=== PATIENT | male | born 1950 | race Caucasian/White ===

== ENCOUNTER 2021-11-27 17:40 | Inpatient (IN) | payer MEDICARE, BC ==
[2021-11-27] MEDS ORDERED: ACETAMINOPHEN TAB 500 MG TAB PO STA (18:27)
[2021-11-27] MEDS ORDERED: ALBUTEROL HFA INHALER INHALATION STA (18:27)
[2021-11-27] MEDS ORDERED: ALBUTEROL HFA INHALER INHALATION PRN (18:27)
[2021-11-27] MEDS ORDERED: ONDANSETRON 4 MG/2 ML VIAL IVP STA (18:28)
[2021-11-27] MEDS ORDERED: FAMOTIDINE 20 MG/2 ML VIAL IV STA (18:28)
[2021-11-27] MEDS ORDERED: SODIUM CHLORIDE 0.9% 1,000 ML IV STA ×2 (18:28)
--- NOTE | 2021-11-27 18:30 | ED ---
General Adult HPI - General Chief complaint: Shortness of Breath Stated complaint: covid+, wants infusion Time Seen by Provider: 11/27/21 18:13 Source: patient, RN notes reviewed Mode of arrival: ambulatory Limitations: no limitations - History of Present Illness Initial comments: Patient is a pleasant 8 he 11-year-old male presenting to the emergency de partment with concern for COVID-19 infection. Onset of symptoms was a days ago. Patient did test positive. Patient has had significant fatigue. Patient has had cough with some shortness of breath. Patient has loss of taste and smell. Decreased appetite. Patient has had vomiting a couple times per day. Patient has had diarrhea a few times per day. No abdominal pain. Patient has had chills and myalgias. - Related Data Allergies Allergy/AdvReac Type Severity Reaction Status Date / Time No Known Allergies Allergy Verified 11/27/21 18:10 Review of Systems ROS Statement: Those systems with pertinent positive or pertinent negative responses have been documented in the HPI. ROS Other: All systems not noted in ROS Statement are negative. Constitutional: Reports: fever, chills Eyes: Denies: eye pain ENT: Denies: ear pain Respiratory: Reports: as per HPI, cough, dyspnea Cardiovascular: Denies: chest pain Endocrine: Reports: fatigue Gastrointestinal: Reports: nausea, vomiting, diarrhea. Denies: abdominal pain Genitourinary: Denies: dysuria Musculoskeletal: Denies: back pain Skin: Denies: rash Neurological: Denies: weakness Past Medical History Past Medical History: Hyperlipidemia History of Any Multi-Drug Resistant Organisms: None Reported Past Surgical History: No Surgical Hx Reported Past Psychological History: No Psychological Hx Reported Smoking Status: Former smoker Past Alcohol Use History: None Reported Past Drug Use History: None Reported General Exam Limitations: no limitations General appearance: alert, in no apparent distress Head exam: Present: normocephalic Eye exam: Present: normal appearance Neck exam: Present: normal inspection Respiratory exam: Present: normal lung sounds bilaterally Cardiovascular Exam: Present: regular rate, normal rhythm GI/Abdominal exam: Present: soft. Absent: tenderness Extremities exam: Present: normal inspection. Absent: pedal edema, calf tenderness Neurological exam: Present: alert Psychiatric exam: Present: normal affect, normal mood Skin exam: Present: normal color Course Vital Signs 11/27/21 11/27/21 11/27/21 18:06 19:04 20:21 Temperature 101.7 F H Pulse Rate 90 74 Respiratory 18 20 20 Rate Blood Pressure 139/87 139/87 O2 Sat by Pulse 91 L 88 L 96 Oximetry EKG Findings - EKG Comments: EKG Findings:: No sinus rhythm rate 86. NE 194. QRS 110. QT 360. QTC 4:30. Left axis. Septal Q waves. No acute ST change. Medical Decision Making - Medical Decision Making Patient reevaluated and updated. Pulse ox 88% on room air. Patient will be admitted for oxygen and pulmonary consult. Mainor has been paged, covering for Dr. Gomez, admits for Dr. Smith - Lab Data Result diagrams: 11/27/21 19:03 11/27/21 19:03 Lab Results 11/27/21 11/27/21 11/27/21 Range/Units 19:03 19:03 19:03 WBC 3.3 L (3.8-10.6) k/uL RBC 5.20 (4.30-5.90) m/uL Hgb 16.2 (13.0-17.5) gm/dL Hct 47.8 (39.0-53.0) % MCV 91.9 (80.0-100.0) fL MCH 31.1 (25.0-35.0) pg MCHC 33.8 (31.0-37.0) g/dL RDW 13.4 (11.5-15.5) % Plt Count 153 (150-450) k/uL MPV 7.4 Neutrophils % 59 % Lymphocytes % 31 % Monocytes % 7 % Eosinophils % 0 % Basophils % 0 % Neutrophils # 2.0 (1.3-7.7) k/uL Lymphocytes # 1.0 (1.0-4.8) k/uL Monocytes # 0.2 (0-1.0) k/uL Eosinophils # 0.0 (0-0.7) k/uL Basophils # 0.0 (0-0.2) k/uL PT 10.0 (9.0-12.0) sec INR 0.9 (<1.2) APTT 26.4 (22.0-30.0) sec Sodium 136 L (137-145) mmol/L Potassium 4.7 (3.5-5.1) mmol/L Chloride 106 (98-107) mmol/L Carbon Dioxide 22 (22-30) mmol/L Anion Gap 8 mmol/L BUN 20 (9-20) mg/dL Creatinine 1.16 (0.66-1.25) mg/dL Est GFR (CKD-EPI)AfAm 74 (>60 ml/min/1.73 sqM) Est GFR (CKD-EPI)NonAf 64 (>60 ml/min/1.73 sqM) Glucose 110 H (74-99) mg/dL Plasma Lactic Acid Dimitrios (0.7-2.0) mmol/L Calcium 9.0 (8.4-10.2) mg/dL Magnesium 2.0 (1.6-2.3) mg/dL Total Bilirubin 0.7 (0.2-1.3) mg/dL AST 76 H (17-59) U/L ALT 37 (4-49) U/L Alkaline Phosphatase 51 (38-126) U/L Lactate Dehydrogenase 1037 H (313-618) U/L C-Reactive Protein 2.9 H (<1.0) mg/dL Total Protein 7.3 (6.3-8.2) g/dL Albumin 3.9 (3.5-5.0) g/dL 11/27/21 Range/Units 19:03 WBC (3.8-10.6) k/uL RBC (4.30-5.90) m/uL Hgb (13.0-17.5) gm/dL Hct (39.0-53.0) % MCV (80.0-100.0) fL MCH (25.0-35.0) pg MCHC (31.0-37.0) g/dL RDW (11.5-15.5) % Plt Count (150-450) k/uL MPV Neutrophils % % Lymphocytes % % Monocytes % % Eosinophils % % Basophils % % Neutrophils # (1.3-7.7) k/uL Lymphocytes # (1.0-4.8) k/uL Monocytes # (0-1.0) k/uL Eosinophils # (0-0.7) k/uL Basophils # (0-0.2) k/uL PT (9.0-12.0) sec INR (<1.2) APTT (22.0-30.0) sec Sodium (137-145) mmol/L Potassium (3.5-5.1) mmol/L Chloride (98-107) mmol/L Carbon Dioxide (22-30) mmol/L Anion Gap mmol/L BUN (9-20) mg/dL Creatinine (0.66-1.25) mg/dL Est GFR (CKD-EPI)AfAm (>60 ml/min/1.73 sqM) Est GFR (CKD-EPI)NonAf (>60 ml/min/1.73 sqM) Glucose (74-99) mg/dL Plasma Lactic Acid Dimitrios 1.1 (0.7-2.0) mmol/L Calcium (8.4-10.2) mg/dL Magnesium (1.6-2.3) mg/dL Total Bilirubin (0.2-1.3) mg/dL AST (17-59) U/L ALT (4-49) U/L Alkaline Phosphatase (38-126) U/L Lactate Dehydrogenase (313-618) U/L C-Reactive Protein (<1.0) mg/dL Total Protein (6.3-8.2) g/dL Albumin (3.5-5.0) g/dL - Radiology Data Radiology results: image reviewed (Chest x-ray shows interstitial infiltrates) Disposition Clinical Impression: COVID-19, Hypoxia Disposition: ADMITTED IP TO THIS HOSP Is patient prescribed a controlled substance at d/c from ED?: No Referrals: Niels Yu DO [Primary Care Provider] - 1-2 days Decision Time: 20:33
[2021-11-27 19:19] LABS: Basophils % (A) 0 %; Eosinophils % (A) 0 %; HCT 47.8 % (39.0-53.0); HGB 16.2 gm/dL (13.0-17.5); Lymphocytes % (A) 31 %; MCH 31.1 pg (25.0-35.0); MCHC 33.8 g/dL (31.0-37.0); MCV 91.9 fL (80.0-100.0); Mean Platelet Volume 7.4; Monocytes # (A) 0.2 k/uL (0-1.0); Monocytes % (A) 7 %; Neutrophils % (A) 59 %; Platelet Count 153 k/uL (150-450); RDW 13.4 % (11.5-15.5); WBC 3.3 k/uL (3.8-10.6)
[2021-11-27 19:24] LABS: INR 0.9 (<1.2); Partial Thromboplastin Time 26.4 sec (22.0-30.0)
[2021-11-27 19:32] LABS: Albumin 3.9 g/dL (3.5-5.0); C Reactive Protein 2.9 mg/dL (<1.0); Potassium 4.7 mmol/L (3.5-5.1); Total Bilirubin 0.7 mg/dL (0.2-1.3); Total Protein 7.3 g/dL (6.3-8.2)
--- NOTE | 2021-11-27 19:47 | XR ---
EXAMINATION TYPE: XR chest 1V portable DATE OF EXAM: 11/27/2021 COMPARISON: NONE HISTORY: Short of breath TECHNIQUE: Single view FINDINGS: Heart is normal. There is some mild increased density over the lateral right upper lobe adriana t could be some interstitial infiltrate. There are chest leads. Costophrenic angles are clear. IMPRESSION: There is probably some interstitial pneumonia lateral right upper lobe. Normal heart.
[2021-11-27] MEDS ORDERED: ONDANSETRON 4 MG/2 ML VIAL IVP PRN (20:35)
[2021-11-27] MEDS ORDERED: NALOXONE 0.4 MG/ML 1 ML VIAL IV PRN (20:35)
[2021-11-27] MEDS: CHOLECALCIFEROL 125 MCG (5000 IU) TABLET PO SCH (21:55)
[2021-11-27] MEDS: ZINC SULFATE 220 MG CAP PO SCH (21:55)
[2021-11-27] MEDS: ASCORBIC ACID 500 MG TAB PO SCH (21:55)
[2021-11-28] MEDS: ALBUTEROL HFA INHALER INHALATION SCH ×5 (00:11→19:18)
[2021-11-28] MEDS: SODIUM CHLORIDE 0.9% 1,000 ML IV SCH ×3 (06:06→19:22)
[2021-11-28] MEDS: ACETAMINOPHEN TAB 500 MG TAB PO PRN (06:10)
[2021-11-28] MEDS: CHOLECALCIFEROL 125 MCG (5000 IU) TABLET PO SCH (07:05)
[2021-11-28] MEDS: ASCORBIC ACID 500 MG TAB PO SCH ×2 (07:05→19:22)
[2021-11-28] MEDS: ZINC SULFATE 220 MG CAP PO SCH (07:05)
[2021-11-28] MEDS: DEXAMETHASONE SOD PHOSPHATE 10 MG/ML 1 ML VIAL IVP SCH (08:54)
[2021-11-28] MEDS: PANTOPRAZOLE 40 MG/10 ML VIAL IV SCH (08:55)
--- NOTE | 2021-11-28 10:54 | P.HPIM ---
History of Present Illness This is a pleasant 71 years old male with past medical history of hypertension and COPD. Patient states he presents because of his low appetite and diarrhea with dyspnea like with exertion on on and off for one week. Also patient is coughing with clear phlegm. He denies chest pain or abdominal pain. However he's feeling fatigued with headache and pain all over No history of smoking, alcohol or illicit drugs per patient. He has no history of vaccination On admission Vitas looks stable, he is saturating 98% on 4 L oxygen and 78% on room air Labs showing mild leukopenia of 3.3, unremarkable rest of CBC, INR, BMP. Lactate dehydrogenase is 1037 and seated reactive protein also elevated at 2.9. Priorcalcitonin 0.12. EKG showing normal sinus rhythm at [address]-T changes Chest x-ray: Showing probably some interstitial pneumonia lateral right upper lobe. Normal heart Review of Systems CONSTITUTIONAL: No fever, no malaise, no fatigue. HEENT: No recent visual problems or hearing problems. Denied any sore throat. CARDIOVASCULAR: No orthopnea, PND, no palpitations, no syncope. PULMONARY: No chest wall tenderness, no hemoptysis. GASTROINTESTINAL: No diarrhea, no nausea, no vomiting, no abdominal pain. Normoactive bowel sounds. NEUROLOGICAL: No headaches, no weakness, no numbness. HEMATOLOGICAL: Denies any bleeding or petechiae. GENITOURINARY: Denies any burning micturition, frequency, or urgency. MUSCULOSKELETAL/RHEUMATOLOGICAL: Denies any joint pain, swelling, or any muscle pain. ENDOCRINE: Denies any polyuria or polydipsia. Past Medical History Past Medical History: COPD, Hyperlipidemia Additional Past Medical History / Comment(s): ruptured tendon repair 10 years ago, smoked for 45 years quit six years ago History of Any Multi-Drug Resistant Organisms: None Reported Past Surgical History: No Surgical Hx Reported Past Anesthesia/Blood Transfusion Reactions: No Reported Reaction Past Psychological History: No Psychological Hx Reported Smoking Status: Former smoker Past Alcohol Use History: None Reported Past Drug Use History: None Reported Medications and Allergies Home Medications Medication Instructions Recorded Confirmed Type Ascorbic Acid [Vitamin C] 500 mg PO DAILY 11/27/21 11/27/21 History Atorvastatin [Lipitor] 10 mg PO HS 11/27/21 11/27/21 History Cholecalciferol [Vitamin D3 (25 25 mcg PO DAILY 11/27/21 11/27/21 History Mcg = 1000 Iu)] [place]-3 Fatty Acids/Fish Oil [Fish 1 cap PO DAILY 11/27/21 11/27/21 History Oil 1,000 mg Softgel] Allergies Allergy/AdvReac Type Severity Reaction Status Date / Time No Known Allergies Allergy Verified 11/27/21 22:38 Physical Exam Vitals: Vital Signs Temp Pulse Pulse Resp BP BP Pulse Ox 11/28/21 06:20 98 11/28/21 06:12 98.6 F 86 24 129/77 78 L 11/28/21 02:21 97.3 F L 61 18 113/71 97 11/27/21 22:29 99.3 F 75 20 128/86 95 11/27/21 21:25 101.1 F H 85 20 136/84 97 11/27/21 20:21 74 20 139/87 96 11/27/21 19:04 20 88 L 11/27/21 18:06 101.7 F H 90 18 139/87 91 L Intake and Output 11/27/21 11/28/21 11/28/21 22:59 06:59 14:59 Other: # Voids 2 Weight 90.718 kg -GENERAL: The patient is alert and oriented x3, not in any acute distress. Generally weak and tired HEENT: Pupils are round and equally reacting to light. EOMI. No scleral icterus. No conjunctival pallor. Normocephalic, atraumatic. No pharyngeal erythema. No thyromegaly. CARDIOVASCULAR: S1 and S2 present. No murmurs, rubs, or gallops. PULMONARY: Chest is clear to auscultation, no wheezing or crackles. ABDOMEN: Soft, nontender, nondistended, normoactive bowel sounds. No palpable organomegaly. MUSCULOSKELETAL: No joint swelling or deformity. EXTREMITIES: No cyanosis, clubbing, or pedal edema. NEUROLOGICAL: Gross neurological examination did not reveal any focal deficits. SKIN: No rashes. no petechiae. Results CBC & Chem 7: 11/27/21 19:03 11/27/21 19:03 Labs: Abnormal Lab Results - Last 24 Hours (Table) 11/27/21 11/27/21 11/27/21 Range/Units 19:03 19:03 19:03 WBC 3.3 L (3.8-10.6) k/uL Sodium 136 L (137-145) mmol/L Glucose 110 H (74-99) mg/dL Ferritin 662.0 H (22.0-322.0) ng/mL AST 76 H (17-59) U/L Lactate Dehydrogenase 1037 H (313-618) U/L C-Reactive Protein 2.9 H (<1.0) mg/dL Procalcitonin 0.12 H (0.02-0.09) ng/mL Thrombosis Risk Factor Assmnt - Choose All That Apply Any of the Below Risk Factors Present?: Yes Each Factor Represents 1 point: Obesity (BMI >25) Other Risk Factors: Yes Each Risk Factor Represents 2 Points: Age 61-74 years Other congenital or acquired thrombophilia - If yes, enter type in comment: No Thrombosis Risk Factor Assessment Total Risk Factor Score: 3 Thrombosis Risk Factor Assessment Level: Moderate Risk Assessment and Plan Assessment: Bilateral, mainly on the right Covid pneumonia Acute hypoxic respiratory failure Increased inflammatory markers Hypertension COPD Plan: This is a pleasant 71 years old male presents with covid pneumonia Continue with dexamethasone Continue with vitamin C, vitamin D and zinc Pulmonary consult Labs and medication were reviewed.. Continue same treatment. Continue with symptomatic treatment. Resume home medication. Monitor lytes and vitals. DVT and GI prophylaxis. Further recommendations depends on the clinical course of the patient DVT prophylaxis: Subcutaneous Lovenox GI Prophylaxis: ppi PT/OT: Pending Prognosis is guarded
[2021-11-28] MEDS: ENOXAPARIN 40 MG/0.4 ML SYRINGE SQ SCH (11:29)
--- NOTE | 2021-11-28 14:46 | P.CNPUL ---
History of Present Illness Consult date: 11/28/21 Requesting physician: Haim Hayward Reason for consult: dyspnea, cough, hypoxemia, pneumonia, abnormal CXR/CT Chief complaint: Shortness of breath. History of present illness: Pulmonary consult dated 11/28/2021. 71-year-old male, seen in room 477. The patient presents to the emergency department on November 27, complaining of shortness of breath. He apparently requested the monoclonal antibody infusion. The patient apparently tested positive for a week ago today, but was having symptoms 2 or 3 days prior to that. His symptoms included shortness of breath, fatigue, muscle aches, cough, and generally just not feeling well. He had decreased appetite, as well as loss of taste and smell. He also apparently was nauseated, and having some emesis. He also complained of some diarrhea. He had chills and myalgias. His past medical history was positive for hyperlipidemia. He was a smoker in the distant past. He has no known history of any lung disease. He's currently on 4 L nasal cannula, and saline at 75 mL an hour. He looks relatively comfortable. White count 3.3, hemoglobin 16.2, hematocrit 47.8, and platelet count 153,000. Sodium 136, potassium 4.7, chlorides 106, CO2 22, anion gap 8, BUN 20, creatinine 1.16. Lactic acid was 1.1. Ferritin was 662. AST 76, with a normal ALT. LDH was 1037. C-reactive protein was 2.9. Pro-calcitonin level was 0.12. Patchy infiltrates are noted primarily in the right lung. Review of Systems REVIEW OF SYSTEMS: CONSTITUTIONAL: Fatigue, weakness, poor appetite, fever. NEUROLOGIC: [ Negative.] HEENT: [ Negative.] CARDIAC: [Negative.] PULMONARY: Shortness of breath and cough. GI: Poor oral intake, nausea, vomiting, diarrhea. : [Negative.] RHEUMATOLOGIC: Myalgias. IMMUNOLOGIC: [ Negative.] ENDOCRINE: [Negative. ] DERMATOLOGIC: [Negative.] Past Medical History Past Medical History: COPD, Hyperlipidemia Additional Past Medical History / Comment(s): ruptured tendon repair 10 years ago, smoked for 45 years quit six years ago History of Any Multi-Drug Resistant Organisms: None Reported Past Surgical History: No Surgical Hx Reported Past Anesthesia/Blood Transfusion Reactions: No Reported Reaction Past Psychological History: No Psychological Hx Reported Smoking Status: Former smoker Past Alcohol Use History: None Reported Past Drug Use History: None Reported Medications and Allergies Home Medications Medication Instructions Recorded Confirmed Type Ascorbic Acid [Vitamin C] 500 mg PO DAILY 11/27/21 11/27/21 History Atorvastatin [Lipitor] 10 mg PO HS 11/27/21 11/27/21 History Cholecalciferol [Vitamin D3 (25 25 mcg PO DAILY 11/27/21 11/27/21 History Mcg = 1000 Iu)] [place]-3 Fatty Acids/Fish Oil [Fish 1 cap PO DAILY 11/27/21 11/27/21 History Oil 1,000 mg Softgel] Allergies Allergy/AdvReac Type Severity Reaction Status Date / Time No Known Allergies Allergy Verified 11/27/21 22:38 Physical Exam Osteopathic Statement: *. No significant issues noted on an osteopathic structural exam other than those noted in the History and Physical/Consult. Vitals: Vital Signs Temp Pulse Pulse Resp BP BP Pulse Ox 11/28/21 10:00 99.1 F 71 16 128/75 94 L 11/28/21 06:20 98 11/28/21 06:12 98.6 F 86 24 129/77 78 L 11/28/21 02:21 97.3 F L 61 18 113/71 97 11/27/21 22:29 99.3 F 75 20 128/86 95 11/27/21 21:25 101.1 F H 85 20 136/84 97 11/27/21 20:21 74 20 139/87 96 11/27/21 19:04 20 88 L 11/27/21 18:06 101.7 F H 90 18 139/87 91 L Intake and Output 11/27/21 11/28/21 11/28/21 22:59 06:59 14:59 Intake Total 600 Balance 600 Intake: Intake, IV Titration 600 Amount Sodium Chloride 0.9% 1, 600 000 ml @ 75 mls/hr IV . [id number] [facility] Rx#:[id number] Other: # Voids 2 Weight 90.718 kg No acute distress, oriented 3. Currently on 4 L nasal cannula. Saturations are 94%. HEENT examination is grossly unremarkable. Neck supple. Full range of motion. No adenopathy thyromegaly or neck vein distention. Cardiovascular examination reveals regular rhythm rate. S1-S2 normal. No S3 or S4. No discernible murmur noted. Heart rate 71 bpm. Lungs reveal minimal scattered rhonchi. No wheezes or crackles. Breath sounds equal. Abdomen soft bowel sounds are heard. No masses or tenderness. Extremities are intact. No cyanosis clubbing or edema. Skin is without rash or lesion. Neurologic examination is brief but nonfocal. Results - Laboratory Findings CBC and BMP: 11/27/21 19:03 11/27/21 19:03 PT/INR, D-dimer PT 10.0 sec (9.0-12.0) 11/27/21 19:03 INR 0.9 (<1.2) 11/27/21 19:03 Abnormal lab findings: Abnormal Labs 11/27/21 11/27/21 11/27/21 19:03 19:03 19:03 WBC 3.3 L Sodium 136 L Glucose 110 H Ferritin 662.0 H AST 76 H Lactate Dehydrogenase 1037 H C-Reactive Protein 2.9 H Procalcitonin 0.12 H - Diagnostic Findings Chest x-ray: image reviewed Assessment and Plan Assessment: Mild/moderate hypoxemic respiratory failure, secondary to coronavirus associated pneumonia. History of hyperlipidemia. Plan: Plan dated 11/28/2021. The patient will be placed on vitamin C, vitamin D3, and zinc. The patient is beyond the window for REM. The patient is not sick enough to receive a monoclonal antibody against interleukin-6. In addition, the patient is given Decadron 6 mg a day, and Lovenox 40 mg subcu daily. Additional recommendations and suggestions are forthcoming. I will order a d-dimer. Prognosis is guarded. The patient clinically looks relatively stable at this time. Time with Patient: Greater than 30
[2021-11-28] MEDS ORDERED: ALBUTEROL HFA INHALER INHALATION PRN (21:17)
[2021-11-29] MEDS: ASCORBIC ACID 500 MG TAB PO SCH ×2 (07:47→19:52)
[2021-11-29] MEDS: ZINC SULFATE 220 MG CAP PO SCH (07:47)
[2021-11-29] MEDS: CHOLECALCIFEROL 125 MCG (5000 IU) TABLET PO SCH (07:47)
[2021-11-29] MEDS: ENOXAPARIN 40 MG/0.4 ML SYRINGE SQ SCH (07:47)
[2021-11-29] MEDS: PANTOPRAZOLE 40 MG/10 ML VIAL IV SCH (07:47)
[2021-11-29] MEDS: SODIUM CHLORIDE 0.9% 1,000 ML IV SCH ×2 (07:48→19:51)
[2021-11-29] MEDS: DEXAMETHASONE SOD PHOSPHATE 10 MG/ML 1 ML VIAL IVP SCH (07:48)
[2021-11-29] MEDS: ACETAMINOPHEN TAB 500 MG TAB PO PRN (11:41)
--- NOTE | 2021-11-29 13:56 | P.PN ---
Subjective Progress Note Date: 11/29/21 Principal diagnosis: Dyspnea, cough, hypoxia 71-year-old male, seen in room 477. The patient presents to the emergency department on November 27, complaining of shortness of breath. He apparently requested the monoclonal antibody infusion. The patient apparently tested positive for a week ago today, but was having symptoms 2 or 3 days prior to that. His symptoms included shortness of breath, fatigue, muscle aches, cough, and generally just not feeling well. He had decreased appetite, as well as loss of taste and smell. He also apparently was nauseated, and having some emesis. He also complained of some diarrhea. He had chills and myalgias. His past medical history was positive for hyperlipidemia. He was a smoker in the distant past. He has no known history of any lung disease. He's currently on 4 L nasal cannula, and saline at 75 mL an hour. He looks relatively comfortable. White count 3.3, hemoglobin 16.2, hematocrit 47.8, and platelet count 153,000. Sodium 136, potassium 4.7, chlorides 106, CO2 22, anion gap 8, BUN 20, creatinine 1.16. Lactic acid was 1.1. Ferritin was 662. AST 76, with a normal ALT. LDH was 1037. C-reactive protein was 2.9. Pro-calcitonin level was 0.12. Patchy infiltrates are noted primarily in the right lung. On 11/29/2021 patient seen in follow-up on medical surgical floor. He is awake and alert, in no acute distress. Patient is currently on 4 L of oxygen, pulse ox is 93-94%, does not appear to be in any acute respiratory distress, he does complain of a cough. He currently remains on Decadron 6 program daily, he is on prophylactic dose Lovenox, and multivitamins. No altered mentation, responding appropriately, he remains on IV hydration with point tenderness in the rate is 75 ML per hour, no nausea vomiting or diarrhea. Patient was found to be outside the window for Remdesivir, and he is not a candidate for Baricitinib at this time related to relatively low amount of oxygen he is requiring for his hypoxia. No new labs today. Chest x-ray on admission showed some interstitial pneumonia in the lateral right upper lobe. Objective - Vital Signs Vital signs: Vital Signs Temp 99.6 F 11/29/21 10:00 Pulse 78 11/29/21 10:00 Resp 16 11/29/21 10:00 BP 120/73 11/29/21 10:00 Pulse Ox 91 L 11/29/21 10:00 Intake & Output 11/28/21 11/29/21 11/29/21 18:59 06:59 18:59 Intake Total 600 600 Balance 600 600 Intake: Intake, IV Titration 600 600 Amount Sodium Chloride 0.9% 1, 600 600 000 ml @ 75 mls/hr IV . [id number] [facility] Rx#:[id number] Other: Voiding Method Toilet # Voids 2 - Exam GENERAL EXAM: Alert, very pleasant, 71-year-old white male, 4 L of oxygen and pulse ox of 93-94%, comfortable in no apparent distress. HEAD: Normocephalic/atraumatic. EYES: Normal reaction of pupils, equal size. Conjunctiva pink, sclera white. NOSE: Clear with pink turbinates. THROAT: No erythema or exudates. NECK: No masses, no JVD, no thyroid enlargement, no adenopathy. CHEST: No chest wall deformity. Symmetrical expansion. LUNGS: Equal air entry with minimal bibasilar crackles CVS: Regular rate and rhythm, normal S1 and S2, no gallops, no murmurs, no rubs ABDOMEN: Soft, nontender. No hepatosplenomegaly, normal bowel sounds, no guarding or rigidity. EXTREMITIES: No clubbing, no edema, no cyanosis, 2+ pulses and upper and lower extremities. MUSCULOSKELETAL: Muscle strength and tone normal. SPINE: No scoliosis or deformity SKIN: No rashes CENTRAL NERVOUS SYSTEM: Alert and oriented -3. No focal deficits, tone is no rmal in all 4 extremities. PSYCHIATRIC: Alert and oriented -3. Appropriate affect. Intact judgment and insight. - Labs CBC & Chem 7: 11/27/21 19:03 11/27/21 19:03 Labs: Abnormal Lab Results - Last 24 Hours (Table) 11/28/21 Range/Units 14:53 D-Dimer 0.61 H (<0.60) mg/L FEU Assessment and Plan Plan: Assessment: #1. Mild to moderate acute hypoxic respiratory failure related to COVID-19 related pneumonia. Patient presented to the emergency department on 11/27/2021, patient had a positive COVID-19 test a week prior on 11/25/2021, however has had the symptoms for 10 days prior to that. At this point he is outside the window for Remdesivir, and his oxygen requirement is not high enough to initiate Baricitinib. Non-vaccinated adult #2. History of hyperlipidemia #3. Former smoker #4. Elevated inflammatory markers related to acute COVID-19 related pneumonia Plan: Continue current medical treatment, Continue Decadron, continue prophylactic Lovenox Continue multivitamins Continue monitoring for signs of worsening dyspnea or hypoxia We'll add Robitussin-AC every 6 hours on an as-needed basis for cough Appears to be stable from pulmonary perspective, no worsening dyspnea or cough Wean FiO2 to keep O2 sat saturation is in her above 90-92% Consider discharge in next 24 hours if remains stable he continues to improve Follow-up inflammatory markers, and d-dimer in the morning I performed a history & physical examination of the patient and discussed their management with my nurse practitioner, Nayana Canseco. I reviewed the nurse practitioner's note and agree with the documented findings and plan of care. Lung sounds are positive for dim breath sounds throughout the lung jung. The findings and the impression was discussed with the patient. I attest to the documentation by the nurse practitioner. Time with Patient: Less than 30
--- NOTE | 2021-11-29 16:22 | US ---
EXAMINATION TYPE: US venous doppler duplex LE DATE OF EXAM: 11/29/2021 2:33 PM COMPARISON: NONE CLINICAL HISTORY: elevated d-dimer. Patient on blood thinners Exam done portable SIDE PERFORMED: Bilateral TECHNIQUE: The lower extremity deep venous system is examined utilizing real time linear array sonog billy with graded compression, doppler sonography and color-flow sonography. VESSELS IMAGED: Common Femoral Vein Deep Femoral Vein Greater Saphenous Vein * Femoral Vein Popliteal Vein Small Saphenous Vein * Proximal Calf Veins (* superficial vessels) There is normal flow, compressibility, vascular waveforms. Right Leg: Appears negative for DVT Left Leg: Appears negative for DVT IMPRESSION: No evident deep venous thrombosis within the lower extremities from the level of the knee s centrally
[2021-11-29] MEDS: guaiFENesin-Coden 100-10MG/5ML 10 ML CUP PO PRN (19:52)
[2021-11-29] MEDS ORDERED: LACTULOSE 20 GM/30 ML CUP PO ONE (20:35)
--- NOTE | 2021-11-29 20:49 | P.PN ---
Progress Note - Text Progress Note Date: 11/29/21 Hospital course This is a pleasant 71 years old male with past medical history of hypertension and COPD. Patient states he presents because of his low appetite and diarrhea with dyspnea like with exertion on on and off for one week. Also patient is coughing with clear phlegm. He denies chest pain or abdominal pain. However he's feeling fatigued with headache and pain all over No history of smoking, alcohol or illicit drugs per patient. He has no history of vaccination On admission Vitas looks stable, he is saturating 98% on 4 L oxygen and 78% on room air Labs showing mild leukopenia of 3.3, unremarkable rest of CBC, INR, BMP. Lactate dehydrogenase is 1037 and seated reactive protein also elevated at 2.9. Priorcalcitonin 0.12. EKG showing normal sinus rhythm at [address]-T changes Chest x-ray: Showing probably some interstitial pneumonia lateral right upper lobe. Normal heart Admitted with COVID-19 pneumonia. Placed on Decadron, subcu Lovenox. November 29: Sitting at the edge of the bed. On 4 L nasal cannula. Has had quite a bit of coughing. Slight sputum. Has had no bowel movement for 7 days. Lactulose as ordered. Eating fair. Labs the patient sit up in a chair. Incentive spirometry ordered. Eating 100%. Change in mental into 2 puffs 4 times a day. Liver ultrasound. Review of systems: Was done for constitutional, cardiovascular, GI, pulmonary. relevant finding as above Active Medications Acetaminophen (Acetaminophen Tab 500 Mg Tab) 1,000 mg PO Q6HR PRN PRN Reason: Fever>101 Last Admin: 11/29/21 11:41 Dose: 1,000 mg Documented by: Albuterol Sulfate (Albuterol Hfa Inhaler) 2 puff INHALATION RT-Q6H PRN PRN Reason: Shortness Of Breath Or Wheezing Last Admin: 11/29/21 20:17 Dose: 2 puff Documented by: Albuterol Sulfate (Albuterol Hfa Inhaler) 2 puff INHALATION RT-QID PRN PRN Reason: Shortness Of Breath Or Wheezing Last Admin: 11/29/21 16:24 Dose: 2 puff Documented by: Ascorbic Acid (Ascorbic Acid 500 Mg Tab) 500 mg PO BID JOSÉ MIGUEL Last Admin: 11/29/21 19:52 Dose: 500 mg Documented by: Cholecalciferol (Cholecalciferol 125 Mcg (5000 Iu) Tablet) 125 mcg PO DAILY [facility] Last Admin: 11/29/21 07:47 Dose: 125 mcg Documented by: Dexamethasone Sodium Phosphate (Dexamethasone Sod Phosphate 10 Mg/Ml 1 Ml Vial) 6 mg IVP DAILY [facility] Last Admin: 11/29/21 07:48 Dose: 6 mg Documented by: Enoxaparin Sodium (Enoxaparin 40 Mg/0.4 Ml Syringe) 40 mg SQ DAILY [facility] Last Admin: 11/29/21 07:47 Dose: 40 mg Documented by: Guaifenesin/Codeine Phosphate (Guaifenesin-Coden 100-10mg/5ml 10 Ml Cup) 10 ml PO Q6HR PRN PRN Reason: Cough Last Admin: 11/29/21 19:52 Dose: 10 ml Documented by: Sodium Chloride (Saline 0.9%) 1,000 mls @ 75 mls/hr IV .[id number] [facility] Last Admin: 11/29/21 19:51 Dose: 75 mls/hr Documented by: Lactulose (Lactulose 20 Gm/30 Ml Cup) 20 gm PO ONCE ONE Stop: 11/29/21 20:36 Naloxone HCl (Naloxone 0.4 Mg/Ml 1 Ml Vial) 0.2 mg IV Q2M PRN PRN Reason: Opioid Reversal Ondansetron HCl (Ondansetron 4 Mg/2 Ml Vial) 4 mg IVP Q8HR PRN PRN Reason: Nausea And Vomiting Pantoprazole Sodium (Pantoprazole 40 Mg/10 Ml Vial) 40 mg IV DAILY [facility] Last Admin: 11/29/21 07:47 Dose: 40 mg Documented by: Zinc Sulfate (Zinc Sulfate 220 Mg Cap) 220 mg PO DAILY [facility] Last Admin: 11/29/21 07:47 Dose: 220 mg Documented by: INVESTIGATIONS, reviewed in the clinical context: Doppler ultrasound: Negative for DVT White count 3.3 d-dimer 0.61 potassium 4.7 creatinine 1.16 LDH 137 CRP 2.9 procalcitonin 0.12 Chest x-ray: Interstitial pneumonia EKG normal sinus rhythm On examination: VITAL SIGNS: 97.9, 66, 16, 113/72, 92% on 4 L GENERAL APPEARANCE: Sitting up in the bed, short of breath PSYCHIATRY: Alert and oriented x3. Mood and affect normal. NEUROLOGICAL: Cranials grossly intact. Moving all 4 limbs Rest of exam per nursing and pulmonary Assessment and plan: -Bilateral, pneumonitis mainly on the right secondary to COVID-19 Dexamethasone, subcu Lovenox -Acute hypoxic respiratory failure, secondary to COVID-19 pneumonia, slow to respond 4 L nasal cannula -Acute COPD exacerbation in a previous smoker Ventolin HFA inhaler, dexamethasone -Hyperlipidemia Lipitor 10 mg daily at bedtime -Mild hepatitis secondary to COVID-19 liver ultrasound Dexamethasone, subcu Lovenox. 4 L nasal cannula. Incentive spirometry ordered. Sit up in a chair. Change Ventolin to 2 puffs 4 times a day. Resume Lipitor. Liver ultrasound. Discussed with patient
[2021-11-29] MEDS: SODIUM CHLORIDE 0.9% 500 ML 500 ML IV SCH (20:53)
[2021-11-29] MEDS: ATORVASTATIN 10 MG TAB PO SCH (20:59)
[2021-11-29] MEDS: ALBUTEROL HFA INHALER INHALATION SCH (21:12)
[2021-11-30] MEDS: guaiFENesin-Coden 100-10MG/5ML 10 ML CUP PO PRN ×3 (02:30→19:55)
[2021-11-30 07:17] LABS: ALT 31 U/L (4-49); AST 56 U/L (17-59); African American GFR (CKD) >90 (>60 ml/min/1.73 sqM); Albumin 3.1 g/dL (3.5-5.0); Alkaline Phosphatase 61 U/L (38-126); Anion Gap 8 mmol/L; Blood Urea Nitrogen 16 mg/dL (9-20); C Reactive Protein 4.1 mg/dL (<1.0); Calcium 8.4 mg/dL (8.4-10.2); Carbon Dioxide 24 mmol/L (22-30); Chloride 107 mmol/L (98-107); Glucose 113 mg/dL (74-99); LDH 895 U/L (313-618); Non-African American GFR(CKD) 83 (>60 ml/min/1.73 sqM); Potassium 4.4 mmol/L (3.5-5.1); Sodium 139 mmol/L (137-145); Total Bilirubin 0.5 mg/dL (0.2-1.3); Total Protein 6.1 g/dL (6.3-8.2)
--- NOTE | 2021-11-30 08:27 | XR ---
EXAMINATION TYPE: XR chest 1V portable DATE OF EXAM: 11/30/2021 COMPARISON: Chest x-ray 11/27/2021 HISTORY: Covid TECHNIQUE: Single frontal view of the chest is obtained. FINDINGS: Airspace disease is more conspicuous in the right upper lobe, patchy densities present at the lung bases. Aorta is dense. Heart size is stable. There is prominence in the region of the ascend ing aorta and right hilum, patient is rotated. No pneumothorax or pleural effusion. Apical pleural th ickening is stable. There is thoracic spondylosis. IMPRESSION: Findings consistent with pneumonia. Indeterminate prominence of the right hilar region, possibly proximal ascending aorta, consider chest CT, follow-up PA and lateral chest x-ray
[2021-11-30] MEDS: ALBUTEROL HFA INHALER INHALATION SCH ×4 (08:50→20:41)
--- NOTE | 2021-11-30 08:51 | US ---
EXAMINATION TYPE: US abdomen limited DATE OF EXAM: 11/30/2021 COMPARISON: NONE CLINICAL HISTORY: Elevated LFT. Abnormal labs EXAM MEASUREMENTS: Liver Length: 15.2 cm Gallbladder Wall: 0.3 cm CBD: 0.6 cm Right Kidney: 9.8 x 5.5 x 4.8 cm Pancreas: Tail obscured by overlying bowel gas Liver: Obscured by overlying bowel gas and the echotexture appears somewhat coarse Gallbladder: wnl Evidence for sonographic Zamora's sign: No CBD: wnl Right Kidney: No hydronephrosis or masses seen No abnormalities seen at this time. IMPRESSION: Limited scan. There may be underlying hepatic steatosis, hepatocellular disease.
[2021-11-30] MEDS: DEXAMETHASONE SOD PHOSPHATE 10 MG/ML 1 ML VIAL IVP SCH (10:21)
[2021-11-30] MEDS: PANTOPRAZOLE 40 MG/10 ML VIAL IV SCH (10:21)
[2021-11-30] MEDS: CHOLECALCIFEROL 125 MCG (5000 IU) TABLET PO SCH (10:22)
[2021-11-30] MEDS: ASCORBIC ACID 500 MG TAB PO SCH ×2 (10:22→19:55)
[2021-11-30] MEDS: ACETAMINOPHEN TAB 500 MG TAB PO PRN (10:22)
[2021-11-30] MEDS: ENOXAPARIN 40 MG/0.4 ML SYRINGE SQ SCH (10:23)
[2021-11-30] MEDS: ZINC SULFATE 220 MG CAP PO SCH (10:23)
--- NOTE | 2021-11-30 14:16 | P.PN ---
Subjective Progress Note Date: 11/30/21 Principal diagnosis: Dyspnea, cough, hypoxia 71-year-old male, seen in room 477. The patient presents to the emergency department on November 27, complaining of shortness of breath. He apparently requested the monoclonal antibody infusion. The patient apparently tested positive for a week ago today, but was having symptoms 2 or 3 days prior to that. His symptoms included shortness of breath, fatigue, muscle aches, cough, and generally just not feeling well. He had decreased appetite, as well as loss of taste and smell. He also apparently was nauseated, and having some emesis. He also complained of some diarrhea. He had chills and myalgias. His past medical history was positive for hyperlipidemia. He was a smoker in the distant past. He has no known history of any lung disease. He's currently on 4 L nasal cannula, and saline at 75 mL an hour. He looks relatively comfortable. White count 3.3, hemoglobin 16.2, hematocrit 47.8, and platelet count 153,000. Sodium 136, potassium 4.7, chlorides 106, CO2 22, anion gap 8, BUN 20, creatinine 1.16. Lactic acid was 1.1. Ferritin was 662. AST 76, with a normal ALT. LDH was 1037. C-reactive protein was 2.9. Pro-calcitonin level was 0.12. Patchy infiltrates are noted primarily in the right lung. On 11/29/2021 patient seen in follow-up on medical surgical floor. He is awake and alert, in no acute distress. Patient is currently on 4 L of oxygen, pulse ox is 93-94%, does not appear to be in any acute respiratory distress, he does complain of a cough. He currently remains on Decadron 6 program daily, he is on prophylactic dose Lovenox, and multivitamins. No altered mentation, responding appropriately, he remains on IV hydration with point tenderness in the rate is 75 ML per hour, no nausea vomiting or diarrhea. Patient was found to be outside the window for Remdesivir, and he is not a candidate for Baricitinib at this time related to relatively low amount of oxygen he is requiring for his hypoxia. No new labs today. Chest x-ray on admission showed some interstitial pneumonia in the lateral right upper lobe. On 11/30/2021 patient seen in follow-up on medical surgical floor. He is awake and alert, in no acute distress, he is currently on 4 L of oxygen with a pulse ox of 91-95%. Vital signs have been stable, he he has some low-grade fevers this morning with a temp of 99.3F, overall appears to be in no acute distress, mild cough, no complaints of chest discomfort. Follow-up chest x-ray showing indeterminate prominence of the right hilar region, airspace disease more conspi cuous in the right upper lobe, patchy densities at the lung bases. No pneumothorax or pleural effusion. Today's labs have been reviewed, d-dimer is improved and is down to 0.45, electrolytes and renal profile are unremarkable. Inflammatory markers are improving, LDH is down to 895, and CRP down to 4.1, pro-calcitonin level is negative at 0.12. Patient continues on Decadron 6 mg daily, continues on prophylactic dose Lovenox, continues on Robitussin-AC and multivitamins. Lower extremity Dopplers were negative for DVT Objective - Vital Signs Vital signs: Vital Signs Temp 99.0 F 11/30/21 10:00 Pulse 81 11/30/21 10:00 Resp 18 11/30/21 10:00 BP 124/73 11/30/21 10:00 Pulse Ox 91 L 11/30/21 10:00 Intake & Output 11/29/21 11/30/21 11/30/21 18:59 06:59 18:59 Intake Total 600 480 600 Balance 600 480 600 Intake: Intake, IV Titration 600 Amount Sodium Chloride 0.9% 1, 600 000 ml @ 75 mls/hr IV . [id number] [facility] Rx#:[id number] Oral 480 600 Other: Voiding Method Toilet # Voids 2 4 - Exam GENERAL EXAM: Alert, very pleasant, 71-year-old white male, 4 L of oxygen and pulse ox of 93-94%, comfortable in no apparent distress. HEAD: Normocephalic/atraumatic. EYES: Normal reaction of pupils, equal size. Conjunctiva pink, sclera white. NOSE: Clear with pink turbinates. THROAT: No erythema or exudates. NECK: No masses, no JVD, no thyroid enlargement, no adenopathy. CHEST: No chest wall deformity. Symmetrical expansion. LUNGS: Equal air entry with minimal bibasilar crackles CVS: Regular rate and rhythm, normal S1 and S2, no gallops, no murmurs, no rubs ABDOMEN: Soft, nontender. No hepatosplenomegaly, normal bowel sounds, no guarding or rigidity. EXTREMITIES: No clubbing, no edema, no cyanosis, 2+ pulses and upper and lower extremities. MUSCULOSKELETAL: Muscle strength and tone normal. SPINE: No scoliosis or deformity SKIN: No rashes CENTRAL NERVOUS SYSTEM: Alert and oriented -3. No focal deficits, tone is normal in all 4 extremities. PSYCHIATRIC: Alert and oriented -3. Appropriate affect. Intact judgment and insight. - Labs CBC & Chem 7: 11/27/21 19:03 11/30/21 05:43 Labs: Abnormal Lab Results - Last 24 Hours (Table) 11/30/21 Range/Units 05:43 Glucose 113 H (74-99) mg/dL Lactate Dehydrogenase 895 H (313-618) U/L C-Reactive Protein 4.1 H (<1.0) mg/dL Total Protein 6.1 L (6.3-8.2) g/dL Albumin 3.1 L (3.5-5.0) g/dL Assessment and Plan Plan: Assessment: #1. Mild to moderate acute hypoxic respiratory failure related to COVID-19 related pneumonia. Patient presented to the emergency department on 11/27/2021, patient had a positive COVID-19 test a week prior on 11/25/2021, however has had the symptoms for 10 days prior to that. At this point he is outside the window for Remdesivir, and his oxygen requirement is not high enough to initiate Baricitinib. Non-vaccinated adult #2. History of hyperlipidemia #3. Former smoker #4. Elevated inflammatory markers related to acute COVID-19 related pneumonia Plan: Continue current medical treatment, Continue Decadron, continue prophylactic Lovenox Continue multivitamins Follow-up chest x-ray has been reviewed Continue monitoring the patient for another 24 hours Labs reviewed, inflammatory markers are improving D-dimer is improving, no evidence of DVTs on lower extremity Dopplers We'll continue to monitor his oxygenation trends over next 24 hours I performed a history & physical examination of the patient and discussed their management with my nurse practitioner, Nayana Canseco. I reviewed the nurse practitioner's note and agree with the documented findings and plan of care. Lung sounds are positive for dim breath sounds throughout the lung jung. The findings and the impression was discussed with the patient. I attest to the documentation by the nurse practitioner. Time with Patient: Less than 30
--- NOTE | 2021-11-30 17:49 | P.PN ---
Progress Note - Text Progress Note Date: 11/30/21 Hospital course This is a pleasant 71 years old male with past medical history of hypertension a nd COPD. Patient states he presents because of his low appetite and diarrhea with dyspnea like with exertion on on and off for one week. Also patient is coughing with clear phlegm. He denies chest pain or abdominal pain. However he's feeling fatigued with headache and pain all over No history of smoking, alcohol or illicit drugs per patient. He has no history of vaccination On admission Vitas looks stable, he is saturating 98% on 4 L oxygen and 78% on room air Labs showing mild leukopenia of 3.3, unremarkable rest of CBC, INR, BMP. Lactate dehydrogenase is 1037 and seated reactive protein also elevated at 2.9. Priorcalcitonin 0.12. EKG showing normal sinus rhythm at [address]-T changes Chest x-ray: Showing probably some interstitial pneumonia lateral right upper lobe. Normal heart Admitted with COVID-19 pneumonia. Placed on Decadron, subcu Lovenox. November 29: Sitting at the edge of the bed. On 4 L nasal cannula. Has had quite a bit of coughing. Slight sputum. Has had no bowel movement for 7 days. Lactulose as ordered. Eating fair. Labs the patient sit up in a chair. Incentive spirometry ordered. Eating 100%. Change in mental into 2 puffs 4 times a day. Liver ultrasound. November 30: Remains on 4 L of nasal cannula. Some shortness of breath. Sitting up. Cough. Told to do warm water with salt gargle. Up to bathroom. Review of systems: Was done for constitutional, cardiovascular, GI, pulmonary. relevant finding as above Active Medications Acetaminophen (Acetaminophen Tab 500 Mg Tab) 1,000 mg PO Q6HR PRN PRN Reason: Fever>101 Last Admin: 11/30/21 10:22 Dose: 1,000 mg Documented by: Albuterol Sulfate (Albuterol Hfa Inhaler) 2 puff INHALATION RT-Q6H PRN PRN Reason: Shortness Of Breath Or Wheezing Last Admin: 11/29/21 20:17 Dose: 2 puff Documented by: Albuterol Sulfate (Albuterol Hfa Inhaler) 2 puff INHALATION RT-QID JOSÉ MIGUEL Last Admin: 11/30/21 16:48 Dose: Not Given Documented by: Ascorbic Acid (Ascorbic Acid 500 Mg Tab) 500 mg PO BID [facility] Last Admin: 11/30/21 10:22 Dose: 500 mg Documented by: Atorvastatin Calcium (Atorvastatin 10 Mg Tab) 10 mg PO HS [facility] Last Admin: 11/29/21 20:59 Dose: 10 mg Documented by: Cholecalciferol (Cholecalciferol 125 Mcg (5000 Iu) Tablet) 125 mcg PO DAILY [facility] Last Admin: 11/30/21 10:22 Dose: 125 mcg Documented by: Dexamethasone Sodium Phosphate (Dexamethasone Sod Phosphate 10 Mg/Ml 1 Ml Vial) 6 mg IVP DAILY [facility] Last Admin: 11/30/21 10:21 Dose: 6 mg Documented by: Enoxaparin Sodium (Enoxaparin 40 Mg/0.4 Ml Syringe) 40 mg SQ DAILY [facility] Last Admin: 11/30/21 10:23 Dose: 40 mg Documented by: Guaifenesin/Codeine Phosphate (Guaifenesin-Coden 100-10mg/5ml 10 Ml Cup) 10 ml PO Q6HR PRN PRN Reason: Cough Last Admin: 11/30/21 10:21 Dose: 10 ml Documented by: Sodium Chloride (Saline 0.9%) 500 mls @ 10 mls/hr IV .Q24H [facility] Last Admin: 11/29/21 20:53 Dose: Not Given Documented by: Naloxone HCl (Naloxone 0.4 Mg/Ml 1 Ml Vial) 0.2 mg IV Q2M PRN PRN Reason: Opioid Reversal Ondansetron HCl (Ondansetron 4 Mg/2 Ml Vial) 4 mg IVP Q8HR PRN PRN Reason: Nausea And Vomiting Pantoprazole Sodium (Pantoprazole 40 Mg/10 Ml Vial) 40 mg IV DAILY [facility] Last Admin: 11/30/21 10:21 Dose: 40 mg Documented by: Zinc Sulfate (Zinc Sulfate 220 Mg Cap) 220 mg PO DAILY [facility] Last Admin: 11/30/21 10:23 Dose: 220 mg Documented by: On examination: VITAL SIGNS: 99, 81, 18, 124/73, 91% on 4 L GENERAL APPEARANCE: Sitting up in the bed, short of breath PSYCHIATRY: Alert and oriented x3. Mood and affect normal. NEUROLOGICAL: Cranials grossly intact. Moving all 4 limbs Rest of exam per nursing and pulmonary INVESTIGATIONS, reviewed in the clinical context: November 30: D-dimer 0.45 potassium 4.4 creatinine 0.94 CRP 4.1 Abdominal ultrasound: Possible hepatic steatosis Doppler ultrasound: Negative for DVT White count 3.3 d-dimer 0.61 potassium 4.7 creatinine 1.16 LDH 137 CRP 2.9 procalcitonin 0.12 Chest x-ray: Interstitial pneumonia EKG normal sinus rhythm Assessment and plan: -Bilateral, pneumonitis mainly on the right secondary to COVID-19 Dexamethasone, subcu Lovenox -Acute hypoxic respiratory failure, secondary to COVID-19 pneumonia, slow to respond 4 L nasal cannula -Acute COPD exacerbation in a previous smoker Ventolin HFA inhaler, dexamethasone -Hyperlipidemia Lipitor 10 mg daily at bedtime -Mild hepatitis secondary to COVID-19 liver ultrasound -Possible hepatic steatosis -Hypoalbuminemia, acute phase reactant Dexamethasone, subcu Lovenox. 4 L nasal cannula. Discussed with patient. Reminded about incentive spirometry.
[2021-11-30] MEDS: ATORVASTATIN 10 MG TAB PO SCH (19:55)
[2021-11-30] MEDS: SODIUM CHLORIDE 0.9% 500 ML 500 ML IV SCH (22:44)
[2021-12-01] MEDS: guaiFENesin-Coden 100-10MG/5ML 10 ML CUP PO PRN ×2 (01:50→08:37)
[2021-12-01] MEDS: ASCORBIC ACID 500 MG TAB PO SCH (08:38)
[2021-12-01] MEDS: DEXAMETHASONE SOD PHOSPHATE 10 MG/ML 1 ML VIAL IVP SCH (08:38)
[2021-12-01] MEDS: CHOLECALCIFEROL 125 MCG (5000 IU) TABLET PO SCH (08:38)
[2021-12-01] MEDS: PANTOPRAZOLE 40 MG/10 ML VIAL IV SCH (08:38)
[2021-12-01] MEDS: ACETAMINOPHEN TAB 500 MG TAB PO PRN (08:38)
[2021-12-01] MEDS: ZINC SULFATE 220 MG CAP PO SCH (08:39)
[2021-12-01] MEDS: ENOXAPARIN 40 MG/0.4 ML SYRINGE SQ SCH (08:39)
[2021-12-01] MEDS: ALBUTEROL HFA INHALER INHALATION SCH ×3 (09:19→15:41)
[2021-12-01 10:26] LABS: Basophils % (A) 0 %; Eosinophils % (A) 0 %; HCT 43.4 % (39.0-53.0); HGB 14.4 gm/dL (13.0-17.5); Lymphocytes # (A) 0.6 k/uL (1.0-4.8); Lymphocytes % (A) 8 %; MCH 30.5 pg (25.0-35.0); MCHC 33.1 g/dL (31.0-37.0); Mean Platelet Volume 7.4; Monocytes # (A) 0.2 k/uL (0-1.0); Monocytes % (A) 3 %; Neutrophils # (A) 6.5 k/uL (1.3-7.7); Neutrophils % (A) 89 %; Platelet Count 214 k/uL (150-450); RBC 4.72 m/uL (4.30-5.90); RDW 13.3 % (11.5-15.5); WBC 7.4 k/uL (3.8-10.6)
[2021-12-01 11:11] LABS: ALT 31 U/L (4-49); AST 47 U/L (17-59); African American GFR (CKD) >90 (>60 ml/min/1.73 sqM); Albumin 3.2 g/dL (3.5-5.0); Albumin/Globulin Ratio 1.1; Alkaline Phosphatase 56 U/L (38-126); Anion Gap 8 mmol/L; Blood Urea Nitrogen 20 mg/dL (9-20); Calcium 8.7 mg/dL (8.4-10.2); Carbon Dioxide 24 mmol/L (22-30); Chloride 106 mmol/L (98-107); Globulin 2.9 g/dL; Glucose 157 mg/dL (74-99); Non-African American GFR(CKD) 83 (>60 ml/min/1.73 sqM); Potassium 3.7 mmol/L (3.5-5.1); Sodium 138 mmol/L (137-145); Total Bilirubin 0.5 mg/dL (0.2-1.3); Total Protein 6.1 g/dL (6.3-8.2)
[2021-12-01 11:16] VITALS: BP 137/89; PULSE 56; RESP 18; TEMP 98.4
--- NOTE | 2021-12-01 15:24 | P.PN ---
Subjective Progress Note Date: 12/01/21 Principal diagnosis: Dyspnea, cough, hypoxia 71-year-old male, seen in room 477. The patient presents to the emergency department on November 27, complaining of shortness of breath. He apparently requested the monoclonal antibody infusion. The patient apparently tested positive for a week ago today, but was having symptoms 2 or 3 days prior to that. His symptoms included shortness of breath, fatigue, muscle aches, cough, and generally just not feeling well. He had decreased appetite, as well as loss of taste and smell. He also apparently was nauseated, and having some emesis. He also complained of some diarrhea. He had chills and myalgias. His past medical history was positive for hyperlipidemia. He was a smoker in the distant past. He has no known history of any lung disease. He's currently on 4 L nasal cannula, and saline at 75 mL an hour. He looks relatively comfortable. White count 3.3, hemoglobin 16.2, hematocrit 47.8, and platelet count 153,000. Sodium 136, potassium 4.7, chlorides 106, CO2 22, anion gap 8, BUN 20, creatinine 1.16. Lactic acid was 1.1. Ferritin was 662. AST 76, with a normal ALT. LDH was 1037. C-reactive protein was 2.9. Pro-calcitonin level was 0.12. Patchy infiltrates are noted primarily in the right lung. On 11/29/2021 patient seen in follow-up on medical surgical floor. He is awake and alert, in no acute distress. Patient is currently on 4 L of oxygen, pulse ox is 93-94%, does not appear to be in any acute respiratory distress, he does complain of a cough. He currently remains on Decadron 6 program daily, he is on prophylactic dose Lovenox, and multivitamins. No altered mentation, responding appropriately, he remains on IV hydration with point tenderness in the rate is 75 ML per hour, no nausea vomiting or diarrhea. Patient was found to be outside the window for Remdesivir, and he is not a candidate for Baricitinib at this time related to relatively low amount of oxygen he is requiring for his hypoxia. No new labs today. Chest x-ray on admission showed some interstitial pneumonia in the lateral right upper lobe. On 11/30/2021 patient seen in follow-up on medical surgical floor. He is awake and alert, in no acute distress, he is currently on 4 L of oxygen with a pulse ox of 91-95%. Vital signs have been stable, he he has some low-grade fevers this morning with a temp of 99.3F, overall appears to be in no acute distress, mild cough, no complaints of chest discomfort. Follow-up chest x-ray showing indeterminate prominence of the right hilar region, airspace disease more conspi cuous in the right upper lobe, patchy densities at the lung bases. No pneumothorax or pleural effusion. Today's labs have been reviewed, d-dimer is improved and is down to 0.45, electrolytes and renal profile are unremarkable. Inflammatory markers are improving, LDH is down to 895, and CRP down to 4.1, pro-calcitonin level is negative at 0.12. Patient continues on Decadron 6 mg daily, continues on prophylactic dose Lovenox, continues on Robitussin-AC and multivitamins. Lower extremity Dopplers were negative for DVT. On 12/01/2021 patient seen in follow-up on medical surgical floor. He is accompanied to the bed, does not appear to be in any acute distress, does have exertional dyspnea and cough, however today he is insisting on going home no matter what. He currently remains on 4 L of oxygen his pulse ox is 90-94%, home oxygen assessment was completed showing room air pulse ox at rest of 85%, with exercise was 85%, on 4 L was 90-91%. Chest x-ray from 11/27/2021 showed airspace disease bilaterally, no pneumothorax or pleural effusion. No distress noted, seems to be breathing fairly comfortable, no conversational dyspnea, today's labs have been noted, white blood cell, 7.4, hemoglobin is 14.4, electrolyte and renal profile were within normal limits. His last d-dimer from yesterday was within normal limits at 0.45, his inflammatory markers were improving on yesterday's labs. Procalcitonin level was negative. Objective - Vital Signs Vital signs: Vital Signs Temp 98.4 F 12/01/21 10:00 Pulse 56 L 12/01/21 10:00 Resp 18 12/01/21 10:00 BP 137/89 12/01/21 10:00 Pulse Ox 90 L 12/01/21 10:00 Intake & Output 11/30/21 12/01/21 12/01/21 18:59 06:59 18:59 Intake Total 600 Balance 600 Intake: Oral 600 Other: Voiding Method Toilet # Voids 4 3 - Exam GENERAL EXAM: Alert, very pleasant, 71-year-old white male, 4 L of oxygen and pulse ox of 93-94%, comfortable in no apparent distress. HEAD: Normocephalic/atraumatic. EYES: Normal reaction of pupils, equal size. Conjunctiva pink, sclera white. NOSE: Clear with pink turbinates. THROAT: No erythema or exudates. NECK: No masses, no JVD, no thyroid enlargement, no adenopathy. CHEST: No chest wall deformity. Symmetrical expansion. LUNGS: Equal air entry with minimal bibasilar crackles CVS: Regular rate and rhythm, normal S1 and S2, no gallops, no murmurs, no rubs ABDOMEN: Soft, nontender. No hepatosplenomegaly, normal bowel sounds, no guarding or rigidity. EXTREMITIES: No clubbing, no edema, no cyanosis, 2+ pulses and upper and lower extremities. MUSCULOSKELETAL: Muscle strength and tone normal. SPINE: No scoliosis or deformity SKIN: No rashes CENTRAL NERVOUS SYSTEM: Alert and oriented -3. No focal deficits, tone is normal in all 4 extremities. PSYCHIATRIC: Alert and oriented -3. Appropriate affect. Intact judgment and insight. - Labs CBC & Chem 7: 12/01/21 09:59 12/01/21 09:59 Labs: Abnormal Lab Results - Last 24 Hours (Table) 12/01/21 12/01/21 Range/Units 09:59 09:59 Lymphocytes # 0.6 L (1.0-4.8) k/uL Glucose 157 H (74-99) mg/dL Total Protein 6.1 L (6.3-8.2) g/dL Albumin 3.2 L (3.5-5.0) g/dL Assessment and Plan Plan: Assessment: #1. Mild to moderate acute hypoxic respiratory failure related to COVID-19 related pneumonia. Patient presented to the emergency department on 11/27/2021, patient had a positive COVID-19 test a week prior on 11/25/2021, however has had the symptoms for 10 days prior to that. At this point he is outside the window for Remdesivir, and his oxygen requirement is not high enough to initiate Baricitinib. Non-vaccinated adult #2. History of hyperlipidemia #3. Former smoker #4. Elevated inflammatory markers related to acute COVID-19 related pneumonia Plan: Continue current medical treatment, Continue Decadron, continue prophylactic Lovenox Continue multivitamins No acute events overnight Patient did qualify for home oxygen he is insistent on going home today although still having some exertional dyspnea and cough He could benefit from another day of hospitalization, however he states he is determined to go home today no matter what He was instructed to come back for reevaluation for worsening dyspnea or hypoxia He needs to follow up with Dr. Tellez in the office in 2 weeks I performed a history & physical examination of the patient and discussed their management with my nurse practitioner, Nayana Canseco. I reviewed the nurse practitioner's note and agree with the documented findings and plan of care. Lung sounds are positive for dim breath sounds throughout the lung jung. The findings and the impression was discussed with the patient. I attest to the documentation by the nurse practitioner. Time with Patient: Less than 30
--- NOTE | 2021-12-01 21:22 | P.DS ---
Providers Date of admission: 11/27/21 20:35 Expected date of discharge: 12/01/21 Attending physician: David Gomez Consults: 11/27/21 20:37 Consult Physician Routine Consulting Provider: Iain Ahuja Consult Reason/Comments: covid, pneumonia Do you want consulting provider notified?: Yes Primary care physician: Niels [facility] [place] Hospital Course: Hospital course This is a pleasant 71 years old male with past medical history of hypertension and COPD. Patient states he presents because of his low appetite and diarrhea with dyspnea like with exertion on on and off for one week. Also patient is coughing with clear phlegm. He denies chest pain or abdominal pain. However he's feeling fatigued with headache and pain all over No history of smoking, alcohol or illicit drugs per patient. He has no history of vaccination On admission Vitas looks stable, he is saturating 98% on 4 L oxygen and 78% on room air Labs showing mild leukopenia of 3.3, unremarkable rest of CBC, INR, BMP. Lactate dehydrogenase is 1037 and seated reactive protein also elevated at 2.9. Priorcalcitonin 0.12. EKG showing normal sinus rhythm at [address]-T changes Chest x-ray: Showing probably some interstitial pneumonia lateral right upper lobe. Normal heart Admitted with COVID-19 pneumonia. Placed on Decadron, subcu Lovenox. November 29: Sitting at the edge of the bed. On 4 L nasal cannula. Has had quite a bit of coughing. Slight sputum. Has had no bowel movement for 7 days. Lactulose as ordered. Eating fair. Labs the patient sit up in a chair. Incentive spirometry ordered. Eating 100%. Change in mental into 2 puffs 4 times a day. Liver ultrasound. November 30: Remains on 4 L of nasal cannula. Some shortness of breath. Sitting up. Cough. Told to do warm water with salt gargle. Up to bathroom. December 01: Patient remains on 4 L of nasal cannula 90%. Short of breath with minimal activity. From my standpoint and pulmonary would have liked the pat ient's to not be discharged currently. Patient insistent about going home. Pulmonary did try to prescription for nasal cannula. We'll add tapering steroids and xarelto. Discussion and discharge planning more than 35 minutes Consultation: Dr. Tellez from pulmonary On examination: VITAL SIGNS: 98.4, 56, 18, 137-89, 90% on 4 L. 85% with activity. GENERAL APPEARANCE: Reclining in the bed, short of breath PSYCHIATRY: Alert and oriented x3. Mood and affect normal. NEUROLOGICAL: Cranials grossly intact. Moving all 4 limbs Rest of exam per nursing and pulmonary INVESTIGATIONS, reviewed in the clinical context: December 01: White count 7.4 hemoglobin 14.4 potassium 3.7 November 30: D-dimer 0.45 potassium 4.4 creatinine 0.94 CRP 4.1 Abdominal ultrasound: Possible hepatic steatosis Doppler ultrasound: Negative for DVT White count 3.3 d-dimer 0.61 potassium 4.7 creatinine 1.16 LDH 137 CRP 2.9 procalcitonin 0.12 Chest x-ray: Interstitial pneumonia EKG normal sinus rhythm Assessment and plan: -Bilateral, pneumonitis mainly on the right secondary to COVID-19 Dexamethasone, subcu Lovenox. Prednisone taper -Acute hypoxic respiratory failure, secondary to COVID-19 pneumonia, slow to respond 4 L nasal cannula -Acute COPD exacerbation in a previous smoker Ventolin HFA inhaler, dexamethasone. Prednisone taper -Hyperlipidemia Lipitor 10 mg daily at bedtime -Mild hepatitis secondary to COVID-19 liver ultrasound -Possible hepatic steatosis -Hypoalbuminemia, acute phase reactant Disposition: Home Plan - Discharge Summary New Discharge Prescriptions: New Zinc Sulfate [Orazinc] 220 mg PO DAILY #30 cap predniSONE 10 mg PO DAILY #30 tab Rivaroxaban [Xarelto] 10 mg PO DAILY #30 tab Albuterol Inhaler [Ventolin Hfa Inhaler] 2 puff INHALATION RT-QID #1 gm Cholecalciferol [Vitamin D3 (125 Mcg = 5000 Iu)] 125 mcg PO DAILY #30 tablet Continue Atorvastatin [Lipitor] 10 mg PO HS [place]-3 Fatty Acids/Fish Oil [Fish Oil 1,000 mg Softgel] 1 cap PO DAILY Ascorbic Acid [Vitamin C] 500 mg PO DAILY #60 tab Discontinued Cholecalciferol [Vitamin D3 (25 Mcg = 1000 Iu)] 25 mcg PO DAILY Discharge Medication List Atorvastatin [Lipitor] 10 mg PO HS 11/27/21 [History] [place]-3 Fatty Acids/Fish Oil [Fish Oil 1,000 mg Softgel] 1 cap PO DAILY 11/27/21 [History] Albuterol Inhaler [Ventolin Hfa Inhaler] 2 puff INHALATION RT-QID #1 gm 02/02/22 [Rx] Ascorbic Acid [Vitamin C] 500 mg PO DAILY #60 tab 12/01/21 [Rx] Cholecalciferol [Vitamin D3 (125 Mcg = 5000 Iu)] 125 mcg PO DAILY #30 tablet 12/01/21 [Rx] Rivaroxaban [Xarelto] 10 mg PO DAILY #30 tab 12/01/21 [Rx] Zinc Sulfate [Orazinc] 220 mg PO DAILY #30 cap 12/01/21 [Rx] predniSONE 10 mg PO DAILY #30 tab 12/01/21 [Rx] Follow up Appointment(s)/Referral(s): Niels Yu DO [Primary Care Provider] - 12/08/21 11:00 am (any changes or concerns call the office ) [place] [NON-STAFF] - As Needed [facility] [NON-STAFF] - As Needed (oxygen ) Iain Ahuja DO [Doctor of Osteopathic Medicine] - 12/29/21 1:15 pm Patient Instructions/Handouts: Coronavirus Disease 2019 (COVID-19) Activity/Diet/Wound Care/Special Instructions: oxygen as needed. take ALL MEDS as prescribed and until gone or follow up occurs with pcp. activity as tolerated, rest as needed. Regular diet. Discharge Disposition: HOME WITH HOME HEALTH SERVICES
== END 2021-12-01 15:30 | disposition home health service (06) | DRG 177 ==
LOC: EC 17:40 → 4SSUR 20:35
PROVIDERS: ADMIT Hospitalist; ATTEND Hospitalist
PROC: 3E0F7SF Introduction of Other Gas into Respiratory Tract, Via Natural or Artificial Opening (ICD-10-PCS; principal; 2021-11-27)
DX: U07.1 COVID-19 (principal); J12.82 Pneumonia due to coronavirus disease 2019; J96.01 Acute respiratory failure with hypoxia; J44.0 Chronic obstructive pulmonary disease with (acute) lower respiratory infection; J44.1 Chronic obstructive pulmonary disease with (acute) exacerbation; I10 Essential (primary) hypertension; K75.9 Inflammatory liver disease, unspecified; K76.0 Fatty (change of) liver, not elsewhere classified; E78.5 Hyperlipidemia, unspecified; E88.09 Other disorders of plasma-protein metabolism, not elsewhere classified; Z79.899 Other long term (current) drug therapy; Z87.891 Personal history of nicotine dependence
CPT/HCPCS: 36415; 71045; 76705; 80053; 82728; 83605; 83615; 83735; 84145; 85025; 85379; 85610; 85730; 86140; 93005; 93970; 94640; 96361; 96374; 96375; 99285

== ENCOUNTER → 2022-01-13 | Outpatient (CLI) | payer MEDICARE, BC ==
--- NOTE | 2022-01-13 14:13 | CT ---
EXAMINATION TYPE: CT chest wo con DATE OF EXAM: 01/13/2022 COMPARISON: Chest x-ray November 30, 2021 and April 27, 2022 HISTORY: hx of covid pneumonia and respiratory failure CT DLP: 258 mGycm. Automated Exposure Control for Dose Reduction was Utilized. TECHNIQUE: CT scan of the thorax is performed without IV contrast. Exam performed high-resolution pr otocol with 1 mm sequences obtained at 10 mm intervals in supine and prone technique. FINDINGS: LUNGS: Scattered peripheral blebs in the bilateral upper lungs and lung apices with reticulation and intralobular septal thickening identified greater in the right lung versus left lung. Additional scat tered mild to moderate linear scarring greater on the right lung. Some right sided volume loss is pre sent. No bronchiectasis or honeycombing. No suspicious masses. No pleural effusion or pneumothorax. MEDIASTINUM: Lack of IV contrast and technique are noted to limit evaluation for mediastinal and mario cially hilar adenopathy. There is slightly enlarged 1.5 x 1.1 cm right tracheobronchial lymph node on image 27. Borderline enlarged subcarinal lymph node on image 30. No cardiomegaly or pericardial eff usion is seen. Moderate three-vessel coronary artery calcification. Ascending aorta measures up to 3. 8 cm in diameter. OTHER: No additional significant abnormality is seen. IMPRESSION: Mild underlying emphysematous change. Mild/moderate pulmonary parenchymal fibrotic change s greater in the right lung versus left lung with right-sided volume loss present. Correlation with o lder outside x-rays and/or CT would be beneficial.
== END | disposition home or self-care (01) ==
LOC: RADCTMAIN 13:31
PROVIDERS: ATTEND Internal Medicine Critical Care Medicine
DX: J43.9 Emphysema, unspecified (principal); J84.10 Pulmonary fibrosis, unspecified
CPT/HCPCS: 71250